=== PATIENT | female | born 1945 | race Caucasian/White ===

== ENCOUNTER 2016-12-11 14:24 | Emergency (ER) | payer MEDICARE, BC ==
--- NOTE | 2016-12-11 15:41 | ER PHYSICIAN DOCUMENTATION ---
Physician Documentation [facility] Name:Shasta Duarte Age:71 yrs Sex:Female :1945 Arrival Date:12/11/2016 Time:14:24 Bed6 Private MD: Carlos Banks Disposition: 12/11/16 15:29 Discharged to Home/Self Care. Impression: Hand Laceration - 1.5 cm length, Simple Closure (by MD). - Condition is Good. - Discharge Instructions: LACERATION, Hand. - Medical Reconciliation form form. - Follow up: Private Physician; When: 12/23/2016; Reason: Recheck today's complaints, Continuance of care, Staple/Suture removal. - Problem is new. - Symptoms are resolved. - Notes: Wash daily with soap and water. Apply Bacitracin Ointment to the wound every day. Keep covered and clean every day. Sutures out in 12 days on December 23, 2016. HPI: 12/11 14:30 This 71 yrs old Female presents to ER via Walk In with complaints of cd Laceration To Hand - LEFT. 14:30 The patient has a laceration related to: falling from a standing position, occurred cd outdoors, and fell landing on an outstreched hand. The injury was accidental. The laceration(s) is(are) located on the heel of left hand. Onset: The symptom(s)/episode began/occurred acutely, today. Associated signs and symptoms: The patient has no apparent associated signs or symptoms. Historical: - Allergies: Darvon; - Home Meds: 1. xeralto unknown amount - PMHx: clotting disorder; - PSHx: KNEE SURGERY; - Tetanus: > 10 years. - Ebola Screening: : Patient negative for fever greater than or equal to 101.5 degrees Fahrenheit, and additional compatible Ebola Virus Disease symptoms. Patient denies exposure to infectious person. Patient denies travel to an Ebola-affected area in the 21 days before illness onset. No symptoms or risks identified at this time. . - Immunization history: Pneumococcal vaccine is up to date, Flu Vaccine < 1 year. - Social history: Smoking status: Patient states was never smoker of tobacco. Patient/guardian denies using alcohol, street drugs. ROS: 14:35 Skin: Positive for laceration(s), of the heel of left hand, Negative for hematoma. cd 14:35 All other systems are negative. Exam: 14:35 Musculoskeletal/extremity: Extremities: grossly normal except: noted in the heel of cd left hand: laceration, ROM: no acute changes, Circulation is intact in all extremities. Sensation intact. 14:35 Constitutional: The patient appears alert, awake, anxious. 14:35 Skin: Appearance: normal except for affected area, injury, laceration(s), the wound is approximately 1 cm(s), with a depth of 0.5 cm(s), of the heel of left hand, that can be described as contaminated, linear, without bleeding. Vital Signs: 14:34 BP 130 / 71; Pulse 92; Resp 16; Temp 98.2; Pulse Ox 90% on R/A; Weight 61.23 kg; Height mk2 5 ft. 5 in. (165.10 cm); Pain 0/10; 15:39 Pulse Ox 92% on R/A; Pain 0/10; mk2 14:34 Body Mass Index 22.46 (61.23 kg, 165.10 cm) mk2 Laceration: 14:35 Wound Repair of 1cm ( 0.4in ) subcutaneous laceration to heel of left hand. Linear cd shaped.. Minimal contamination.. Hemostasis noted.. Distal neuro/vascular/tendon intact. Anesthesia: Local anesthetic administered with 3 mls of 2% lidocaine. Wound prep: Extensive cleansing with hibiclenz, Copious irrigation. Skin closed with 5 4-0 Ethilon using Simple sutures. Dressed with Bacitracin, 4x4's, Serafin. Patient tolerated well. MDM: 14:34 Patient medically screened. cd 14:35 Data reviewed: vital signs, nurses notes, and as a result, I will discharge patient. cd 15:20 Counseling: I had a detailed discussion with the patient and/or guardian regarding: the cd historical points, exam findings, and any diagnostic results supporting the discharge/admit diagnosis, the need for outpatient follow up, for a recheck, with the patient's primary care provider, to return to the emergency department if symptoms worsen or persist or if there are any questions or concerns that arise at home. Response to treatment: the patient's symptoms have resolved after treatment, and as a result, I will discharge patient. Dispensed Medications: 15:22 Drug: Bacitracin Ointment (500 unit/g) 1 application; Route: Topical; Site: affected mk2 area; Signatures: Carlos Galdamez MD MD cd Kruger, Meg RN RN mk2
--- NOTE | 2016-12-11 15:41 | ER NURSING DOCUMENTATION ---
Nurse's Notes [facility] Name:Shasta Duarte Age:71 yrs Sex:Female :1945 Arrival Date:12/11/2016 Time:14:24 Bed6 Private MD: Diagnosis:Hand Laceration-1.5 cm length, Simple Closure (by MD) Presentation: 12/11 14:32 Presenting complaint: Patient states: I was hiking and I fell and cut my left palm. I mk2 didn't hit my head. Transition of care: Other hiking. Complicating Factors: There are no complicating factors for this patient. Care prior to arrival: None. 14:32 Method Of Arrival: Walk In 2 14:32 Acuity: FLORA 4 mk2 Triage Assessment: 14:34 Compartment Syndrome symptoms: Unable to determine. General: Appears in no apparent mk2 distress, Behavior is cooperative, pleasant. Pain: Denies pain. Injury Description: Laceration sustained to heel of left hand. Historical: - Allergies: Darvon; - Home Meds: 1. xeralto unknown amount - PMHx: clotting disorder; - PSHx: KNEE SURGERY; - Tetanus: > 10 years. - Ebola Screening: : Patient negative for fever greater than or equal to 101.5 degrees Fahrenheit, and additional compatible Ebola Virus Disease symptoms. Patient denies exposure to infectious person. Patient denies travel to an Ebola-affected area in the 21 days before illness onset. No symptoms or risks identified at this time. . - Immunization history: Pneumococcal vaccine is up to date, Flu Vaccine < 1 year. - Social history: Smoking status: Patient states was never smoker of tobacco. Patient/guardian denies using alcohol, street drugs. Screenin:35 Infectious Disease Risk None. Abuse screen: Denies threats or abuse. Nutritional mk2 screening: No deficits noted. Assessment: 14:35 See Triage Assessment done by same RN. mk2 15:40 Injury Description: Laceration is 0.5 to 2.5 cm long, not bleeding. mk2 15:40 Musculoskeletal: No deficits noted. mk2 Vital Signs: 14:34 BP 130 / 71; Pulse 92; Resp 16; Temp 98.2; Pulse Ox 90% on R/A; Weight 61.23 kg; Height mk2 5 ft. 5 in. (165.10 cm); Pain 0/10; 15:39 Pulse Ox 92% on R/A; Pain 0/10; mk2 14:34 Body Mass Index 22.46 (61.23 kg, 165.10 cm) 2 ED Course: 14:26 Patient arrived in ED. ama 14:32 Cherelle Mcintyre, RN is Primary Nurse. 2 14:32 Triage completed. 2 14:34 Carlos Galdamez MD is Attending Physician. cd 14:35 Arm band placed on Bed in low position Call Light in Reach Gowned HOB Elevated Side 2 rails up x1. 15:13 Valuables Remains with patient. 2 15:13 Assist Provider Assist provider with laceration repair Set up tray. 2 15:29 Wound care was dressed with bacitracin 4X4s, bhavesh wrap. 2 18:27 Pt states she will check on the status of her tetanus when she returns to [place]. 2 Administered Medications: 15:22 Drug: Bacitracin Ointment (500 unit/g) 1 application; Route: Topical; Site: affected [facility] area; Outcome: 15:29 Discharge ordered by . 15:39 Discharged to home ambulatory. 2 15:39 Condition: improved 15:39 Discharge instructions given to patient, family, Instructed on discharge instructions, follow up and referral plans. medication usage. 15:40 Patient left the ED. 2 12/12 14:10 Discharge F/U Call: Unable to reach: no answer st Signatures: Ingrid Partida RN RN st Daley, Chris, MD MD cd Kruger, Meg, RN RN [facility] Keith Goins, Reg Reg ama
== END 2016-12-11 15:41 | disposition home or self-care (01) ==
LOC: ER 14:24
DX: S61.412A Laceration without foreign body of left hand, initial encounter (principal); W01.0XXA Fall on same level from slipping, tripping and stumbling without subsequent striking against object, initial encounter; Y92.838 Other recreation area as the place of occurrence of the external cause; Y93.01 Activity, walking, marching and hiking; D68.9 Coagulation defect, unspecified; Z79.01 Long term (current) use of anticoagulants
CPT/HCPCS: 12001; 12041; 99283